=== PATIENT | male | born 1995 | race Two or more races ===

== ENCOUNTER 2023-06-14 19:45 | Emergency (ER) | payer SELFPAY ==
[~2023-06-14] VITALS: Ht 170.2 cm; Wt 39.5 kg
[2023-06-14 22:26] VITALS: BP 127/74; PULSE 70; RESP 17; TEMP 98.3
== END 2023-06-14 22:34 | disposition home or self-care (01) ==
LOC: EMS 19:46
DX: S90.02XA Contusion of left ankle, initial encounter (principal); S80.02XA Contusion of left knee, initial encounter; S90.512A Abrasion, left ankle, initial encounter; V89.2XXA Person injured in unspecified motor-vehicle accident, traffic, initial encounter; Y93.89 Activity, other specified; Y92.89 Other specified places as the place of occurrence of the external cause; Y99.8 Other external cause status
CPT/HCPCS: 29505; 29530; 99284; 73090-TC; 73562-TC; 73610-TC; Z7502